=== PATIENT | female | born 1970 | race African-American/Black ===

== ENCOUNTER 2021-11-29 12:58 | Inpatient (IN) | payer OTHER ==
[2021-11-29 13:57] VITALS: BMI 22.6
[2021-11-29] MEDS ORDERED: LOPERAMIDE HCL 2 MG CAPSULE PO PRN (14:38)
[2021-11-29] MEDS ORDERED: ACETAMINOPHEN 325 MG TABLET (FP) PO PRN ×2 (14:38)
[2021-11-29] MEDS ORDERED: BISMUTH SUBSALICYLATE 262 MG/15 ML BTL PO PRN (14:38)
[2021-11-29] MEDS ORDERED: DICYCLOMINE HCL 10 MG CAPSULE PO PRN (14:38)
[2021-11-29] MEDS ORDERED: ONDANSETRON *ODT* 4 MG TABLET SL PRN (14:38)
[2021-11-29] MEDS ORDERED: MAGNESIUM HYDROX 2400MG/30ML ORAL SUSPENSION 30 ML CUP PO PRN (14:38)
[2021-11-29] MEDS ORDERED: MAGNESIUM CITRATE 300 ML BOTTLE PO PRN (14:38)
[2021-11-29] MEDS ORDERED: MAG HYDROX/AL HYDROX/SIMETH 30 ML UNIT-DOSE CUP PO PRN (14:38)
[2021-11-29] MEDS ORDERED: NICOTINE POLACRILEX 2 MG GUM BUC PRN (14:38)
[2021-11-29] MEDS ORDERED: IBUPROFEN 400 MG TABLET (FP) PO PRN (14:38)
[2021-11-29] MEDS ORDERED: BENZOCAINE/MENTHOL (CHLORASEPTIC ) LOZENGE MM PRN (14:38)
[2021-11-29] MEDS: PRENATAL VITAMINS W/ FOLIC ACID TABLET (FP) PO SCH (15:28)
[2021-11-29] MEDS: hydrOXYzine PAMOATE 25 MG CAPSULE (FP) PO SCH ×2 (18:49→23:25)
[2021-11-29] MEDS ORDERED: methaDONE HCL 10 MG TABLET (FOR DETOX USE ONLY) PO ONE (22:00)
[2021-11-29] MEDS: CLOTRIMAZOLE 1% 10 ML TOPICAL SOLUTION TP SCH (23:24)
[2021-11-29] MEDS: MELATONIN 5 MG TABLETS PO SCH (23:25)
[2021-11-29] MEDS: THIAMINE HCL 100 MG TABLET (FP) PO SCH (23:25)
[2021-11-30] MEDS: hydrOXYzine PAMOATE 25 MG CAPSULE (FP) PO SCH ×5 (07:10→23:07)
[2021-11-30] MEDS: PRENATAL VITAMINS W/ FOLIC ACID TABLET (FP) PO SCH (10:51)
[2021-11-30] MEDS: CLOTRIMAZOLE 1% 10 ML TOPICAL SOLUTION TP SCH ×2 (10:53→23:09)
[2021-11-30 16:48] LABS: HEMATOCRIT 40.5 % (32.4-45.2); HEMOGLOBIN 13.8 GM/dL (10.7-15.3); MCH 32.5 pg (25.7-33.7); MCHC 34.1 g/dl (32.0-36.0); MEAN CELL VOLUME 95.4 fl (80-96); MEAN PLT VOLUME 8.7 fl (7.5-11.1); PLATELET COUNT 212 10^3/uL (134-434); RBC 4.24 M/mm3 (3.60-5.2); WHITE BLOOD COUNT 5.8 K/mm3 (4.0-10.0)
[2021-11-30 17:18] LABS: ALBUMIN 3.7 g/dl (3.4-5.0); BLOOD UREA NITROGEN 8.6 mg/dL (7-18); CALCIUM 9.2 mg/dL (8.5-10.1)
[2021-11-30 17:21] LABS: CREATININE 0.8 mg/dL (0.55-1.3)
[2021-11-30 17:23] LABS: BILIRUBIN,TOTAL 0.5 mg/dL (0.2-1); TOT PROT 7.4 g/dl (6.4-8.2)
[2021-11-30 17:59] LABS: HIV INTERPRETATION NEGATIVE (NEGATIVE)
[2021-11-30] MEDS: THIAMINE HCL 100 MG TABLET (FP) PO SCH (23:07)
[2021-11-30] MEDS: MELATONIN 5 MG TABLETS PO SCH (23:07)
[2021-11-30] MEDS: QUEtiapine FUMARATE 50 MG TABLET PO SCH (23:07)
[2021-12-01] MEDS: hydrOXYzine PAMOATE 25 MG CAPSULE (FP) PO SCH ×4 (06:14→18:27)
[2021-12-01] MEDS ORDERED: methaDONE HCL 10 MG TABLET (FOR DETOX USE ONLY) PO ONE (10:00)
[2021-12-01] MEDS: PRENATAL VITAMINS W/ FOLIC ACID TABLET (FP) PO SCH (10:51)
[2021-12-01] MEDS: METHOCARBAMOL 500 MG TABLET PO PRN ×2 (10:52→18:27)
[2021-12-01] MEDS: CLOTRIMAZOLE 1% 10 ML TOPICAL SOLUTION TP SCH (11:51)
[2021-12-01] MEDS: cloNIDine HCL 0.1 MG TABLET PO PRN ×2 (18:27→23:00)
[2021-12-01] MEDS: IBUPROFEN 600 MG TABLET (FP) PO PRN (18:28)
[2021-12-01] MEDS: THIAMINE HCL 100 MG TABLET (FP) PO SCH (23:00)
[2021-12-01] MEDS: QUEtiapine FUMARATE 50 MG TABLET PO SCH (23:00)
[2021-12-01] MEDS: MELATONIN 5 MG TABLETS PO SCH (23:00)
[2021-12-02] MEDS: hydrOXYzine PAMOATE 25 MG CAPSULE (FP) PO SCH ×5 (00:46→17:39)
[2021-12-02] MEDS: CLOTRIMAZOLE 1% 10 ML TOPICAL SOLUTION TP SCH ×2 (00:47→10:21)
[2021-12-02 06:53] VITALS: RESP 18
[2021-12-02] MEDS: PRENATAL VITAMINS W/ FOLIC ACID TABLET (FP) PO SCH (10:20)
[2021-12-02] MEDS: METHOCARBAMOL 500 MG TABLET PO PRN ×2 (10:20→17:40)
[2021-12-02] MEDS: IBUPROFEN 600 MG TABLET (FP) PO PRN (16:06)
[2021-12-02 17:30] VITALS: PULSE 85
[2021-12-02 19:06] VITALS: BP 142/91; TEMP 97.8
[2021-12-03] MEDS ORDERED: methaDONE HCL 10 MG TABLET (FOR DETOX USE ONLY) PO ONE (10:00)
== END 2021-12-02 19:07 | disposition left against medical advice (07) | DRG 770 ==
LOC: YASAS 12:58 → Y3N 14:44
PROVIDERS: ADMIT Allergy & Immunology; ATTEND Allergy & Immunology
PROC: HZ2ZZZZ Detoxification Services for Substance Abuse Treatment (ICD-10-PCS; principal; 2021-11-29)
DX: F11.23 Opioid dependence with withdrawal (principal); F14.20 Cocaine dependence, uncomplicated; F17.210 Nicotine dependence, cigarettes, uncomplicated; F19.282 Other psychoactive substance dependence with psychoactive substance-induced sleep disorder; F19.24 Other psychoactive substance dependence with psychoactive substance-induced mood disorder; F32.A Depression, unspecified; Z91.19 Patient's noncompliance with other medical treatment and regimen
CPT/HCPCS: 36415; 80053; 81025; 85027; 86780; 87389; 87811; 93005; 93010; C9803-CS; U0003; U0005